=== PATIENT | female | born 1980 | race Caucasian/White ===

== ENCOUNTER 2016-02-22 21:55 | Emergency (ER) | payer SELFPAY ==
[~2016-02-22] VITALS: Ht 167.6 cm; Wt 111.3 kg
[2016-02-22 21:59] VITALS: Ht 167.6 cm; Wt 111.3 kg
== END 2016-02-23 03:09 | disposition left against medical advice (07) ==
LOC: FTE 21:55
DX: Z53.21 Procedure and treatment not carried out due to patient leaving prior to being seen by health care provider (principal)